=== PATIENT | male | born 1985 | race Caucasian/White ===

== ENCOUNTER 2016-07-02 18:31 | Emergency (ER) | payer OTHER ==
[~2016-07-02] VITALS: Ht 182.9 cm; Wt 68.0 kg
[2016-07-02 18:36] VITALS: BP 138/84; PULSE 87; RESP 17; TEMP 98; O2SAT 98
[2016-07-02 19:32] LABS: MEAN CORPUSCULAR HGB CONC 36.2 % (32.0-36.0)
--- NOTE | 2016-07-02 19:35 | PD ---
HPI Chief Complaint: Abdominal Pain Time Seen by Provider: 19:25 Travel History International Travel<30 days: No Contact w/Intl Traveler<30days: No Traveled to known affect area: No History of Present Illness HPI 30-year-old male here with abdominal pain. Symptoms started 2 days ago. He describes it as a sharp pain in the epigastric and right upper quadrant of his abdomen which is constant but seems to be worse after meals. He has never had this type of pain before. He reports a history of irritable bowel syndrome but this feels different. He tried taking Colace but that didn't seem to help. He endorses nausea. Denies vomiting, flank pain, dysuria, constipation, testicular or scrotal pain. He endorses chills yesterday with a recorded temperature of 99, no objective fevers on thermometer. Denies cough or congestion or sore throat, rash or recent travel, drug abuse. No history of gallbladder issues. He has no other complaints. [facility] Past Medical History Narrative Medical History of irritable bowel syndrome Social History Alcohol Use: No Tobacco Use: No Allergies-Medications (Allergen,Severity, Reaction): Coded Allergies: Ceclor (Verified Allergy, Severe, Hives, 07/02/16) Reported Meds & Prescriptions Reported Meds & Active Scripts Active Zofran (Ondansetron HCl) 4 Mg Tab 4 Mg PO Q6HR PRN Zantac (Ranitidine HCl) 150 Mg Tab 150 Mg PO BID 7 Days Review of Systems Except as stated in HPI: all other systems reviewed are Neg Physical Exam Narrative GENERAL: Well-nourished male who appears uncomfortable on initial examination. His vital signs are stable. SKIN: Warm and dry. HEAD: Atraumatic. Normocephalic. EYES: Pupils equal and round. No scleral icterus. No injection or drainage. ENT: No nasal bleeding or discharge. Mucous membranes pink and moist. NECK: Trachea midline. No JVD. CARDIOVASCULAR: Regular rate and rhythm. No murmur appreciated. RESPIRATORY: No accessory muscle use. Clear to auscultation. Breath sounds equal bilaterally. GASTROINTESTINAL: Abdomen soft, tender to palpation in the right upper quadrant and epigastrium. Positive Goodwin's. No guarding. No tenderness to palpation in the lower quadrants. MUSCULOSKELETAL: No obvious deformities. No edema. NEUROLOGICAL: Awake and alert. No obvious cranial nerve deficits. Motor grossly within normal limits. Normal speech. PSYCHIATRIC: Appropriate mood and affect; insight and judgment normal. Data Data Last Documented VS Orders Complete Blood Count With Diff (07/02/16 19:31) Comprehensive Metabolic Panel (07/02/16 19:31) Lipase (07/02/16 19:31) Urinalysis - C+S If Indicated (07/02/16 19:31) Us Abdomen Gallbladder (07/02/16 ) Al-Mag Hy-Si 40-40-4 Mg/Ml Liq (Mag-Al P (07/02/16 22:15) Lidocaine 2% Viscous (Xylocaine 2% Visco (07/02/16 22:15) MDM Medical Decision Making Medical Screen Exam Complete: Yes Emergency Medical Condition: Yes Medical Record Reviewed: Yes Differential Diagnosis Pancreatitis, cholecystitis, biliary colic, ascending cholangitis, irritable bowel syndrome, colitis, gastritis Narrative Course 30-year-old male here with 2 days of epigastric and right upper quadrant abdominal pain, nausea. On examination his pain is reproducible in the epigastrium and right upper quadrant with a positive Goodwin sign. The patient was initially seen in triage where protocol labs and the right upper quadrant abdominal ultrasound has been ordered. The patient will be moved to a medical bed when one becomes available. Scripts Ondansetron (Zofran)4 Mg Tab4 Mg PO Q6HR PRN (NAUSEA) #10 TAB Ref 0 Prov:Greg Qureshi MD 07/02/16 Ranitidine (Zantac)150 Mg [id number] Mg PO BID 7 Days Ref 0 Prov:Greg Qureshi MD 07/02/16 Joaquin Banda Jul 02, 2016 19:34
[2016-07-02 19:59] LABS: AUTOMATED NEUTROPHIL # 8.2 TH/MM3 (1.8-7.7); BASOPHIL # 0.1 TH/MM3 (0-0.2); BASOPHIL % 0.5 % (0.0-2.0); EOSINOPHIL # 0.1 TH/MM3 (0-0.4); EOSINOPHIL % 0.9 % (0.0-4.0); HEMATOCRIT 46.3 % (39.0-51.0); LYMPH % 24.9 % (9.0-44.0); MEAN CELL VOLUME 84.5 FL (80.0-100.0); MEAN CORPUSCULAR HEMOGLOBIN 30.6 PG (27.0-34.0); NEUT % 67.7 % (16.0-70.0); PLATELET COUNT 370 TH/MM3 (150-450); RED BLOOD COUNT 5.48 MIL/MM3 (4.50-5.90); RED CELL DISTRIBUTION WIDTH 12.4 % (11.6-17.2); WHITE BLOOD COUNT 12.1 TH/MM3 (4.0-11.0)
[2016-07-02 20:02] LABS: HEMO FLAGS DIFF FINAL
[2016-07-02 20:27] LABS: ANION GAP 6 MEQ/L (5-15); AST (GOT) 22 U/L (15-37); BLOOD UREA NITROGEN 12 MG/DL (7-18); CHLORIDE 103 MEQ/L (98-107); GLOMERULAR FILTRATION RATE 70 ML/MIN (>89); POTASSIUM 4.2 MEQ/L (3.5-5.1); SODIUM (NA) 138 MEQ/L (136-145)
[2016-07-02 20:31] LABS: ALKALINE PHOSPHATASE 81 U/L (45-117); ALT (GPT) 30 U/L (12-78); TOTAL BILIRUBIN ADULT 0.6 MG/DL (0.2-1.0)
--- NOTE | 2016-07-02 21:49 | RADRPT ---
EXAM DATE/TIME: 07/02/2016 20:36 [facility] COMPARISON: No previous studies available for comparison. INDICATIONS : Right upper quadrant pain. MEDICAL HISTORY : Irritable bowel syndrome. SURGICAL HISTORY : None. ENCOUNTER: Initial ACUITY: 2 days PAIN SCORE: 8/10 LOCATION: Right upper quadrant MEASUREMENTS: LIVER: 15.5 cm length COMMON DUCT: 5 mm RIGHT KIDNEY: 9.9 x 3.9 x 4.3 cm FINDINGS: LIVER: Normal echotexture without focal lesion or ductal dilatation. COMMON DUCT: No intraluminal mass or stone visualized. GALLBLADDER: Contains no stones, demonstrates no wall thickening or pericholecystic fluid. PANCREAS: The visualized portions are within normal limits. RIGHT KIDNEY: No evidence of hydronephrosis, stone, or mass. CONCLUSION: Normal examination. Murray Jesus MD on July 02, 2016 at 21:47 Board Certified Radiologist. This report was verified electronically.
[2016-07-02] MEDS ORDERED: ZOFR4TAB PO (22:10)
[2016-07-02] MEDS ORDERED: ZANT150T2 PO (22:10)
--- NOTE | 2016-07-02 22:12 | PD ---
Physical Exam Time Seen by Provider: 22:10 Narrative 30-year-old male presents to the emergency department for evaluation of epigastric abdominal pain for 2 days. The patient was seen by provider in triage she was initiated workup, please see his documentation. The patient has had epigastric pain that he reports is constant for the past 2 days. Describes it as a pressure pain. Aggravated with eating. Denies any alleviating factors. States he had nausea without vomiting. States that he had loose stools but admits that he did take dulcolax yesterday because he thought he had constipation. He states he had a low-grade temperature of 99F yesterday. Denies fever, chills, vomiting, diarrhea, bloody stool, cough or cold symptoms, burning with urination, painful urination. Denies any prior abdominal surgeries. Denies alcohol or drug use. No other complaints. GENERAL: Well-nourished and well-developed pleasant male patient in no acute distress who is nontoxic appearing. SKIN: Warm and dry. HEAD: Normocephalic and atraumatic. EYES: No injection, drainage, or hyphema noted. PERRLA. EOMI. ENT: No nasal drainage noted. Oropharynx is clear. NECK: Supple and the trachea is midline. CARDIOVASCULAR: Regular rate and rhythm. RESPIRATORY: Breath sounds are equal bilaterally with no accessory muscle use, wheezing, rhonchi, or crackles. GASTROINTESTINAL: Mild tenderness to palpation of epigastric region. Abdomen is soft and nondistended. Negative McBurney's point. Negative Goodwin sign. No rebound tenderness or guarding. MUSCULOSKELETAL: No obvious deformities, swelling, cyanosis, or ecchymosis is present throughout the upper and lower extremities. Patient has full range of motion without any signs of neurovascular compromise. NEUROLOGICAL: Awake, alert, and oriented. Normal speech and gait. Cranial nerves are grossly intact. Data Data Last Documented VS Vital Signs Date Time Temp Pulse Resp B/P Pulse Ox O2 Delivery O2 Flow Rate FiO2 07/02/16 18:36 98.0 87 17 138/84 98 Orders Complete Blood Count With Diff (07/02/16 19:31) Comprehensive Metabolic Panel (07/02/16 19:31) Lipase (07/02/16 19:31) Urinalysis - C+S If Indicated (07/02/16 19:31) Us Abdomen Gallbladder (07/02/16 ) Al-Mag Hy-Si 40-40-4 Mg/Ml Liq (Mag-Al P (07/02/16 22:15) Lidocaine 2% Viscous (Xylocaine 2% Visco (07/02/16 22:15) Labs Laboratory Tests Test 07/02/16 07/02/16 19:35 21:45 White Blood Count 12.1 TH/MM3 Red Blood Count 5.48 MIL/MM3 Hemoglobin 16.8 GM/DL Hematocrit 46.3 % Mean Corpuscular Volume 84.5 FL Mean Corpuscular Hemoglobin 30.6 PG Mean Corpuscular Hemoglobin 36.2 % Concent Red Cell Distribution Width 12.4 % Platelet Count 370 TH/MM3 Mean Platelet Volume 8.2 FL Neutrophils (%) (Auto) 67.7 % Lymphocytes (%) (Auto) 24.9 % Monocytes (%) (Auto) 6.0 % Eosinophils (%) (Auto) 0.9 % Basophils (%) (Auto) 0.5 % Neutrophils # (Auto) 8.2 TH/MM3 Lymphocytes # (Auto) 3.0 TH/MM3 Monocytes # (Auto) 0.7 TH/MM3 Eosinophils # (Auto) 0.1 TH/MM3 Basophils # (Auto) 0.1 TH/MM3 CBC Comment DIFF FINAL Differential Comment Sodium Level 138 MEQ/L Potassium Level 4.2 MEQ/L Chloride Level 103 MEQ/L Carbon Dioxide Level 29.0 MEQ/L Anion Gap 6 MEQ/L Blood Urea Nitrogen 12 MG/DL Creatinine 1.22 MG/DL Estimat Glomerular Filtration 70 ML/MIN Rate Random Glucose 67 MG/DL Calcium Level 9.1 MG/DL Total Bilirubin 0.6 MG/DL Aspartate Amino Transf 22 U/L (AST/SGOT) Alanine Aminotransferase 30 U/L (ALT/SGPT) Alkaline Phosphatase 81 U/L Total Protein 8.2 GM/DL Albumin 4.7 GM/DL Lipase 150 U/L Urine Color YELLOW Urine Turbidity CLEAR Urine pH 5.0 Urine Specific [place] 1.010 Urine Protein NEG mg/dL Urine Glucose (UA) NEG mg/dL Urine Ketones NEG mg/dL Urine Occult Blood NEG Urine Nitrite NEG Urine Bilirubin NEG Urine Urobilinogen LESS THAN 2.0 MG/DL Urine Leukocyte Esterase NEG Urine RBC LESS THAN 1 /hpf Urine WBC LESS THAN 1 /hpf Urine Mucus FEW /lpf Microscopic Urinalysis Comment CULT NOT INDICATED MDM Supervised Visit with BETH: No Differential Diagnosis Gastritis versus GERD versus gastroenteritis versus viral illness versus other Narrative Course 30-year-old male presents to the emergency room for evaluation of epigastric pain for 2 days with nausea. Patient is afebrile, vital signs are stable. He has some mild epigastric tenderness to palpation but overall abdominal examination is benign. Patient was seen by provider in triage were initiated labs and imaging. CBC shows a slightly elevated white blood cell count of 12.1 but is otherwise unremarkable. CMP is unremarkable. Lipase is normal. Urinalysis shows few mucus, otherwise unremarkable. Gallbladder ultrasound is negative. The patient has epigastric abdominal pain with reassuring labs and a negative ultrasound. This is likely gastritis. Patient is given a GI cocktail. We discharged with Zantac and Zofran. Advised follow-up with his PCP. Given return precautions. Patient verbalizes understanding and agreement with treatment plan. I discussed the case with my attending physician Dr. Qureshi who is aware of the patients history, physical examination findings, and treatment plan. Diagnosis Primary Impression: Epigastric abdominal pain Referrals: Primary Care Physician Patient Instructions: Epigastric Pain (ED), General Instructions Additional Instruction: Take medications as prescribed. Follow-up with your Primary Care Physician. Return to the ED for any acute worsening of symptoms such as worsening abdominal pain, fever, vomiting. Med/Other Pt SpecificInfo: Prescription(s) given Scripts Ondansetron (Zofran)4 Mg Tab4 Mg PO Q6HR PRN (NAUSEA) #10 TAB Ref 0 Prov:Greg Qureshi MD 07/02/16 Ranitidine (Zantac)150 Mg [id number] Mg PO BID 7 Days Ref 0 Prov:Greg Qureshi MD 07/02/16 Disposition: 01 DISCHARGE HOME Condition: Stable Leigh Can Jul 02, 2016 22:12
[2016-07-02 22:15] LABS: BLOOD, URINE NEG (NEG); COMMENT (UR) CULT NOT INDICATED; CULTURE IF INDICATED CULT NOT INDICATED; GLUCOSE,URINE NEG (NEG); KETONE, URINE NEG (NEG); MUCUS URINE FEW /lpf (OCC); NITRITE,URINE NEG (NEG); URINE COLOR YELLOW (YELLW/STRAW)
[2016-07-02] MEDS ORDERED: ALUMINUM/MAGNESIUM/SIMETH 30 ML CUP PO ONE (22:15)
[2016-07-02] MEDS ORDERED: LIDOCAINE VISCOUS 2% SOLN 15 ML UDC PO ONE (22:15)
== END 2016-07-02 22:46 | disposition home or self-care (01) ==
LOC: NEPC 18:31
DX: R10.13 Epigastric pain (principal); R10.11 Right upper quadrant pain
CPT/HCPCS: 76705; 80053; 81001; 83690; 85025